=== PATIENT | female | born 1970 | race Caucasian/White ===

== ENCOUNTER 2023-06-30 13:59 | Outpatient (CLI) | payer BC | END 2023-06-30 14:00 | disposition home or self-care (01) | LOC: CSHMAMMO 13:59 | PROVIDERS: ATTEND Obstetrics & Gynecology | DX: Z12.31 Encounter for screening mammogram for malignant neoplasm of breast (principal) | CPT/HCPCS: 77063; 77067 ==

== ENCOUNTER 2023-07-11 13:21 | Outpatient (CLI) | payer BC | END 2023-07-11 13:22 | disposition home or self-care (01) | LOC: CSHMAMMO 13:21 | PROVIDERS: ATTEND Obstetrics & Gynecology | DX: N64.89 Other specified disorders of breast (principal) | CPT/HCPCS: G0279 ==